=== PATIENT | female | born 1965 | race Caucasian/White ===

== ENCOUNTER 2019-12-22 15:30 | Outpatient (CLI) | payer OTHER, SELFPAY ==
--- NOTE | ~2019-12-22 | MM_ITS ---
EXAMINATION: MM screening [facility] BI w randy HISTORY: Screening mammogram TECHNIQUE: Craniocaudal and mediolateral oblique 3-D tomosynthesis images were obtained and synthetic 2-D images were generated. CAD analysis was submitted and interpreted. COMPARISON: 11/12/2018, 10/31/2017, 10/17/2016 bilateral digital screening mammogram examinations BREAST PARENCHYMAL COMPOSITION: There are scattered areas of fibroglandular density. FINDINGS: There is no evidence of suspicious mass, calcification, or architectural distortion to sugg est malignancy in either breast. There has been no suspicious interval change. IMPRESSION: 1. No mammographic evidence of malignancy. 2. Recommend routine screening mammography in one year. BI-RADS Category 1: Negative Reviewed, dictated and finalized at location A.
== END 2019-12-22 15:31 | disposition home or self-care (01) ==
PROVIDERS: PCP Nurse Practitioner Family; Visit Provider Nurse Practitioner Family
DX: Z12.31 Encounter for screening mammogram for malignant neoplasm of breast (principal)
CPT/HCPCS: 77063; 77067

== ENCOUNTER 2021-06-19 15:27 | Outpatient (CLI) | payer OTHER, SELFPAY ==
--- NOTE | ~2021-06-19 | MM_ITS ---
EXAMINATION: MM screening [facility] BI w randy HISTORY: Screening mammogram TECHNIQUE: Craniocaudal and mediolateral oblique 3-D tomosynthesis images were obtained and synthetic 2-D images were generated. CAD analysis was submitted and interpreted. COMPARISON: 12/22/2019, 11/12/2018, 10/31/2017 BREAST PARENCHYMAL COMPOSITION: There are scattered areas of fibroglandular density. FINDINGS: There is no evidence of suspicious mass, calcification, or architectural distortion to sugg est malignancy in either breast. There has been no suspicious interval change. IMPRESSION: 1. No mammographic evidence of malignancy. 2. Recommend routine screening mammography in one year. BI-RADS Category 1: Negative Reviewed, dictated and finalized at location A. 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
== END 2021-06-19 15:28 | disposition home or self-care (01) ==
LOC: ANHIMG 15:29
PROVIDERS: PCP Nurse Practitioner Family; Visit Provider Nurse Practitioner Family
DX: Z12.31 Encounter for screening mammogram for malignant neoplasm of breast (principal)
CPT/HCPCS: 77063; 77067

== ENCOUNTER 2022-09-23 15:08 | Outpatient (CLI) | payer OTHER, SELFPAY ==
--- NOTE | ~2022-09-23 | MM_ITS ---
EXAMINATION: MM screening [facility] BI w randy HISTORY: Screening TECHNIQUE: Craniocaudal and mediolateral oblique 3-D tomosynthesis images were obtained and synthetic 2-D images were generated. CAD analysis was submitted and interpreted. COMPARISON: Comparison to multiple prior studies sequentially, with oldest reviewed study dated 10/19. BREAST PARENCHYMAL COMPOSITION: There are scattered areas of fibroglandular density. FINDINGS: There is no evidence of suspicious mass, calcification, or architectural distortion to sugg est malignancy in either breast. There has been no suspicious interval change. IMPRESSION: 1. No mammographic evidence of malignancy. 2. Recommend routine screening mammography in one year. BI-RADS Category 1: Negative Reviewed, dictated and finalized at location A.
== END 2022-09-23 15:09 | disposition home or self-care (01) ==
LOC: ANHIMG 15:10
PROVIDERS: PCP Nurse Practitioner Family; Visit Provider Nurse Practitioner Family
DX: Z12.31 Encounter for screening mammogram for malignant neoplasm of breast (principal)
CPT/HCPCS: 77063; 77067

== ENCOUNTER 2024-03-10 13:22 | Outpatient (CLI) | payer OTHER, SELFPAY ==
--- NOTE | ~2024-03-10 | MM_ITS ---
EXAMINATION: MM screening [facility] BI w randy HISTORY: Screening mammogram TECHNIQUE: Craniocaudal and mediolateral oblique 3-D tomosynthesis images were obtained and synthetic 2-D images were generated. CAD analysis was submitted and interpreted. COMPARISON: 09/23/2022, 06/19/2021, 12/22/2019 BREAST PARENCHYMAL COMPOSITION:Not Dense. There are scattered areas of fibroglandular density. FINDINGS: No suspicious mass, calcification, or architectural distortion are identified in either jackie ast to suggest malignancy. There has been no suspicious interval change. IMPRESSION: No mammographic evidence of malignancy. Recommend routine screening mammography in one year. BI-RADS Category 1: Negative Reviewed, dictated and finalized at location .
== END 2024-03-10 13:23 | disposition home or self-care (01) ==
LOC: ANHIMG 13:24
PROVIDERS: PCP Family Medicine; Visit Provider Family Medicine
DX: Z12.31 Encounter for screening mammogram for malignant neoplasm of breast (principal)
CPT/HCPCS: 77063; 77067

== ENCOUNTER 2024-04-23 13:48 | Outpatient (CLI) | payer OTHER, SELFPAY ==
--- NOTE | ~2024-04-23 | DEXA_ITS ---
Bone Density Report Name: RADHA HART Age: 59 Sex: Female Ethnicity: White Date of : 1965 Indication: postmenopausal; screening for osteoporosis; height loss; Referring Provider: ABILIO, [facility] Study: Bone densitometry was performed. Exam Date: April 23, 2024 Accession number: [id number] Bone Density: Region BMD T-score Z-score Classification AP Spine(L1-L4) 1.238 1.7 3.2 Normal Femoral Neck (Left) 0.745 -0.9 0.4 Normal Total Hip (Left) 0.969 0.2 1.2 Normal Femoral Neck (Right) 0.728 -1.1 0.2 Osteopenia Total Hip (Right) 0.942 0.0 1.0 Normal Total Hip Mean 0.956 0.1 1.1 Normal World Health Organization criteria for BMD impression classify patients as: Normal (T-score at or above -1.0), Osteopenia (T-score between -1.0 and -2.5), or Osteoporosis (T-score at or below -2.5). 10-year Fracture Risk(1): Major Osteoporotic Fracture 7.3% Hip Fracture 0.4% Reported Risk Factors: [place] (), Neck BMD=0.728, BMI=29.5 (1) FRAX(R) Version 3.08. Fracture probability calculated for an untreated patient. Fracture probability may be lower if the patient has received treatment. Clinical Information Provided by Patient: Has used the following medications: Vitamin D, Calcium Patient maximum height was 67 Menopause Age: 54 Drinks caffeinated beverages Onset of menses at age 11 Number of children 0 Impression: The patient has low bone mass, based on the Right Femoral Neck T-score. The patient has an estimated ten-year risk of hip fracture of 0.4% and an estimated ten-year risk of major fracture of 7.3%, based on the WHO FRAX algorithm. Discussion: BONE DENSITY IS LOW AT ONE OR MORE SKELETAL SITES. This patient's lowest T-score is low at one or more skeletal sites. It meets the World Health Organization's (WHO) criteria for ?low bone mass? (T-score between -1.0 and -2.5). The patient's 10-year risk of fracture as calculated by FRAX is less than the threshold where pharmacological therapy is recommended by the National Osteoporosis Foundation (NOF). However, all treatment decisions require clinical judgment and consideration of individual patient factors, including patient preferences, comorbidities, previous drug use, risk factors not captured in the FRAX model (e.g., frailty, falls, vitamin D deficiency, increased bone turnover, interval significant decline in bone density) and possible under or overestimation of fracture risk by FRAX. The patient should follow a healthful lifestyle (good nutrition with adequate calcium and vitamin D, and appropriate weight-bearing exercise). Follow-Up: Consider repeating this study in 2 to 3 years to reassess this patient's status, or sooner if there is some new clinical indication. Reported by: DUSTY on 04/23/2024 2:23:00 PM. Reviewed, dictated and finalized at location A. BABAR
== END 2024-04-23 13:49 | disposition home or self-care (01) ==
LOC: ANHIMG 13:50
PROVIDERS: PCP Family Medicine; Visit Provider Family Medicine
DX: Z13.820 Encounter for screening for osteoporosis (principal); M85.851 Other specified disorders of bone density and structure, right thigh
CPT/HCPCS: 77080

== ENCOUNTER 2025-05-20 09:30 | Outpatient (CLI) | payer OTHER, SELFPAY ==
--- NOTE | ~2025-05-20 | MM_ITS ---
EXAMINATION: MM screening dilip BI w randy HISTORY: Screening TECHNIQUE: Craniocaudal and mediolateral oblique 3-D tomosynthesis images were obtained and synthetic 2-D images were generated. CAD analysis was submitted and interpreted. COMPARISON: Comparison to multiple prior studies sequentially, with oldest reviewed study dated 10/31/2017. BREAST PARENCHYMAL COMPOSITION: Not dense: There are scattered areas of fibroglandular density. FINDINGS: There is no evidence of suspicious mass, calcification, or architectural distortion to suggest malignancy in either breast. There has been no suspicious interval change. IMPRESSION: 1. No mammographic evidence of malignancy. 2. Recommend routine screening mammography in one year. BI-RADS Category 1: Negative Reviewed, dictated and finalized at location O. 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
--- OUTSIDE RECORDS SUMMARY | 2025-05-20 09:33 | XMS_ITS | Data Portability ---
Author Organization [place] - [facility], Main Office Address [address] [place] [address] Care Team Providers Care Solution Make Up Operator Name Role Phone RAOUL BERGER Primary Care Provider [phone] Assessment Encounter Date Assessment Date Assessment LastModified by Organization Details LastModified Time 12/31/2023 12/31/2023 58 yo F with - WELL ADULT VISIT - HLD - HTG - HYPOTHYROIDISM - VIT D DEFICIENCY - OVERWEIGHT D/w pt about her findings, recent labs & imagines and further plan of care. Will do routine labs. Meds as directed. Risks Vs benefits of Aspirin 81mg po QOD with food explained. Pt agreed. Diet and exercise explained in detail. Pt in not interested in wt loss med. HM: WWE - 12/20, normal as per pt. Cont f/u with Gyne/LICENSED PRACTICAL NURSE CLINIC NURSE as per schedule. Mammo - 09/23/22, normal. Ordered. DEXA - Never. Ordered. Colonoscopy - 10 yrs ago. Cologuard - 01/10/23, neg. Flu - 04/21. Tdap - 12/19. Pneumo - Pt declined. Shingrix, RSV - At pharmacy/HD. F/u in 2-3 weeks. Annual labs in 01/21. Not available 12/31/2023 09:57:54 01/22/2024 01/22/2024 58 yo F with - HTG, uncontrolled - HLD - HYPOTHYROIDISM - VIT D DEFICIENCY - OVERWEIGHT Annual labs: 12/31/23. D/w pt about her findings, recent labs & imagines and further plan of care. Pt declined for any new Rx at this time. Meds as directed. Risks Vs benefits of Aspirin 81mg po QOD with food explained. Pt agreed. Diet and exercise explained in detail. Pt in not interested in wt loss med. HM: WWE - 12/20, normal as per pt. Cont f/u with Gyne/LICENSED PRACTICAL NURSE CLINIC NURSE as per schedule. Mammo - 09/23/22, normal. Ordered. DEXA - Never. Ordered. Colonoscopy - 10 yrs ago. Cologuard - 01/10/23, neg. Flu - 04/21. Tdap - 12/19. Pneumo - Pt declined. Shingrix, RSV - At pharmacy/HD. F/u in 3-4 months. Lipids in 04/22. Annual labs in 01/21. Not available 01/22/2024 17:25:20 04/28/2024 04/28/2024 The patient gave verbal consent using TelePhonic services and the consent is documented in the medical record prior to using the service. The patient has been informed of what a TeleMedicine visit is. Patient is located at other. Provider is located at office. Names and roles of persons in addition to the patient and provider participating in telemedicine services include staff. The patient had a 11 minute TeleMedicine consultation via phone call to discuss the followin yo F with - HTG, improved - HLD - HYPOTHYROIDISM - VIT D DEFICIENCY - OSTEOPENIA - OVERWEIGHT Annual labs: 12/31/23. D/w pt about her findings, recent labs & imagines and further plan of care. Pt declined for any new Rx at this time. Meds as directed. Risks Vs benefits of Aspirin 81mg po QOD with food explained. Pt agreed. Diet and exercise explained in detail. Pt in not interested in wt loss med. HM: WWE - 12/20, normal as per pt. Cont f/u with Gyne/LICENSED PRACTICAL NURSE CLINIC NURSE as per schedule. Mammo - 03/10/24, normal. DEXA - 04/23/24, osteopenia ++. Colonoscopy - 10 yrs ago. Cologuard - 01/10/23, neg. Flu - 04/21. Tdap - 12/19. Pneumo - Pt declined. Shingrix, RSV - At pharmacy/HD. F/u in 3-4 months. Lipids in 07/24. Annual labs in 01/21. [email or web address] Not available 04/28/2024 15:45:34 Plan of Treatment Reminders Order Date Submit Date Provider Last Modified By Organization Details Last Modified Time Details Appointments None recorded. Lab lipid panel, serum 2023 025 [email or web address] [facility] (Lab), [address] [place], [address], 5 13:55:15 lipid panel, serum 2023 024 [facility] (Lab), [address] [place], [address], 4 14:31:25 [email or web address] obin, total, blood 2023 024 [facility] (Lab), [address] [place], [address], 4 21:34:43 vitamin D, 25-hydroxy, total, serum [address] (Lab), [address] [place], [address], 4 09:08:52 CBC w/ auto diff 2023 024 [facility] (Lab), [address] [place], [address], 4 14:39:03 CMP, serum or plasma 2023 024 [facility] (Lab), [address] [place], [address], 4 14:41:30 lipid panel, serum 2023 024 [email or web address] [facility] (Lab), [address] [place], [address], 4 15:33:49 TSH, serum, reflex free T4 [address] (Lab), [address] [place], [address], 4 09:08:52 urinalysis complete, reflex culture 2023 024 [email or web address] [facility] ([facility] [address] [place], [address], 4 09:08:[address] referral - Please call patient to schedule an appointment . 2023 024 [email or web address] Naveen Ward MD, [address], [facility], [place], [address], 4 08:47:42 Procedures None recorded. Surgeries None recorded. Imaging MAMMO, screening, bilateral 2023 024 [email or web address] 256 Not available 4 09:17:08 DEXA 2023 024 [email or web address] 256 Not available 4 09:16:40 MAMMO, screening, bilateral 2023 024 [email or web address] 256 [facility], [address] [place] [address] [place] [address], [address], 4 08:51:21 Medication Orders levothyroxi ne 125 mcg tablet 2023 [facility], [address] [facility] [address], [address], 4 15:42:35 rosuvastati n 5 mg tablet 2023 024 [facility], [address], [address], 4 15:42:36 levothyroxi ne 125 mcg tablet 2023 024 [facility], [address], [address], 17:17:17 rosuvastati n 5 mg tablet 2023 024 [facility], [address], [address], 17:17:18 levothyroxi ne 125 mcg tablet 2023 024 [facility], [address], [address], 14:09:45 rosuvastati n 5 mg tablet 2023 024 [facility], [address], [address], 14:09:46 Patient TargetsNo targets recorded. Patient Instructions Encounter Date Encounter Id Patient Instructions Last Modified By Organization Details Last Modified Time 09/16/2023 [id number] When You Want to Lose Weight: Care Instructions Not available 09/16/2023 14:23:11 12/31/2023 [id number] When You Want to Lose Weight: Care Instructions Not available 12/31/2023 09:49:26 01/22/2024 [id number] high cholesterol : care instructions [email or web address] Not available 01/22/2024 17:17:10 When You Want to Lose Weight: Care Instructions Not available 01/22/2024 17:17:10 04/28/2024 [id number] high cholesterol : care instructions [email or web address] Not available 04/28/2024 15:42:30 When You Want to Lose Weight: Care Instructions [email or web address] Not available 04/28/2024 15:42:30 Due to the COVID-19 (Novel Coronavirus) pandemic, it is within this context (and with the understanding that this method of patient encounter is in the patient s best interest as well as the health and safety of other patients and the public) that [facility] is being provided for this patient encounter rather than a wgbg-pa-rieg visit. This patient encounter is appropriate at this time. This patient has been advised of the potential risks and limitations of this mode of treatment (including, but not limited to, the absence of in-person examination) and has agreed to be treated in a remote fashion despite these risks. Any and all of the patient s /patient s family s questions on this issue have been answered, and I have made no promises or guarantees to the patient. The patient has also been advised to contact this office for worsening conditions or problems, and seek emergency medical treatment and/or call 911 if the patient deems either necessary. HPI and/or vitals, if listed, were provided by the patient. 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 Referring Physician: Raoul Berger, Family Medicine, Encounter Date: 09/16/2023 Results Created Date Observation Date Name Description Value Unit Range Abnormal Flag Note LastModifiedBy Organization Detail LastModifiedTime 12/31/19 24 12/31/2023 CBC/C OMPLE TE BLD COUNT W/DIF F white blood cells 5.9 x10'3 /uL 4.2-10 .8 Not Available [facility] (Lab) [address] [place], [address], 12/31/2023 14:39:03 12/31/19 24 12/31/2023 CBC/C OMPLE TE BLD COUNT W/DIF F red blood cells 4.34 x10'6 /uL 3.80-5 .20 Not Available [facility] (Lab) [address] [place], [address], 12/31/2023 14:39:03 12/31/19 24 12/31/2023 CBC/C OMPLE TE BLD COUNT W/DIF F hemoglobin 14.0 g/dL 12.0-1 5.6 Not Available [facility] (Lab) [address] [place], [address], 12/31/2023 14:39:03 12/31/19 24 12/31/2023 CBC/C OMPLE TE BLD COUNT W/DIF F hematocrit 41.3 % 35.7-4 5.7 Not Available [facility] (Lab) [address] [place], [address], 12/31/2023 14:39:03 12/31/19 24 12/31/2023 CBC/C OMPLE TE BLD COUNT W/DIF F mean red cell volume 95.2 fL 82.0-9 9.0 Not Available [facility] (Lab) [address] [place], [address], 12/31/2023 14:39:03 12/31/19 24 12/31/2023 CBC/C OMPLE TE BLD COUNT W/DIF F mean red cell hemoglobin 32.3 pg 27.0-3 3.0 Not Available [facility] (Lab) [address] [place], [address], 12/31/2023 14:39:03 12/31/19 24 12/31/2023 CBC/C OMPLE TE BLD COUNT W/DIF F mean RBC HGB concentratio n 33.9 g/dL 31.0-3 6.0 Not Available [facility] (Lab) [address] [place], [address], 12/31/2023 14:39:03 12/31/19 24 12/31/2023 CBC/C OMPLE TE BLD COUNT W/DIF F red cell distribution width 11.8 % 11.8-1 5.5 Not Available [facility] (Lab) [address] [place], [address], 12/31/2023 14:39:03 12/31/19 24 12/31/2023 CBC/C OMPLE TE BLD COUNT W/DIF F platelets 275 x10'3 /uL 150-40 0 Not Available [facility] (Lab) [address] [place], [address], 12/31/2023 14:39:03 12/31/19 24 12/31/2023 CBC/C OMPLE TE BLD COUNT W/DIF F mean platelet volume 9.6 fL 9.0-12 .4 Not Available [facility] (Lab) [address] [place], [address], 12/31/2023 14:39:03 12/31/19 24 12/31/2023 CBC/C OMPLE TE BLD COUNT W/DIF F neutrophils 52.3 % 39.0-7 2.0 Not Available [facility] (Lab) [address] [place], [address], 12/31/2023 14:39:03 12/31/19 24 12/31/2023 CBC/C OMPLE TE BLD COUNT W/DIF F lymphocytes 34.9 % 16.0-4 7.0 Not Available [facility] (Lab) [address] [place], [address], 12/31/2023 14:39:03 12/31/19 24 12/31/2023 CBC/C OMPLE TE BLD COUNT W/DIF F monocytes 7.0 % 5.0-12 .0 Not Available [facility] (Lab) [address] [place], [address], 12/31/2023 14:39:03 12/31/19 24 12/31/2023 CBC/C OMPLE TE BLD COUNT W/DIF F eosinophils 4.3 % 1.0-7. 0 Not Available [facility] (Lab) [address] [place], [address], 12/31/2023 14:39:03 12/31/19 24 12/31/2023 CBC/C OMPLE TE BLD COUNT W/DIF F basophils 1.0 % 0.0-2. 0 Not Available [facility] (Lab) [address] [place], [address], 12/31/2023 14:39:03 12/31/19 24 12/31/2023 CBC/C OMPLE TE BLD COUNT W/DIF F immature granulocytes 0.5 % 0.00-0 .50 Not Available [facility] (Lab) [address] [place], [address], 12/31/2023 14:39:03 12/31/19 24 12/31/2023 CBC/C OMPLE TE BLD COUNT W/DIF F neutrophils, absolute count 3.06 x10'3 /uL 1.5-8. 0 Not Available [facility] (Lab) [address] [place], [address], 12/31/2023 14:39:03 12/31/19 24 12/31/2023 CBC/C OMPLE TE BLD COUNT W/DIF F lymphocytes, absolute count 2.04 x10'3 /uL 1.07-3 .43 Not Available [facility] (Lab) [address] [place], [address], 12/31/2023 14:39:03 12/31/19 24 12/31/2023 CBC/C OMPLE TE BLD COUNT W/DIF F monocytes, absolute count 0.41 x10'3 /uL 0.29-0 .99 Not Available [facility] (Lab) [address] [place], [address], 12/31/2023 14:39:03 12/31/19 24 12/31/2023 CBC/C OMPLE TE BLD COUNT W/DIF F eosinophils, absolute count 0.25 x10'3 /uL 0.02-0 .53 Not Available [facility] (Lab) [address] [place], [address], 12/31/2023 14:39:03 12/31/19 24 12/31/2023 CBC/C OMPLE TE BLD COUNT W/DIF F basophils, absolute count 0.06 x10'3 /uL 0.01-0 .08 Not Available [facility] (Lab) [address] [place], [address], 12/31/2023 14:39:03 12/31/19 24 12/31/2023 CBC/C OMPLE TE BLD COUNT W/DIF F immature granulocytes ,absolute 0.03 x10'3 /uL 0.00-0 .05 Not Available [facility] (Lab) [address] [place], [address], 12/31/2023 14:39:03 12/31/19 24 12/31/2023 CBC/C OMPLE TE BLD COUNT W/DIF F nucleated red blood cells 0.0 % -0 Not Available [facility] (Lab) [address] [place], [address], 12/31/2023 14:39:03 12/31/19 24 12/31/2023 CBC/C OMPLE TE BLD COUNT W/DIF F NRBC# 0.00 x10'3 /uL Not Available [facility] (Lab) [address] [place], [address], 12/31/2023 14:39:03 12/31/19 24 12/31/2023 COMPR EHENS ROBI METAB OLIC PANEL sodium 135 mmol/ L 137-14 5 low Not Available [facility] (Lab) [address] [place], [address], 12/31/2023 14:41:30 12/31/19 24 12/31/2023 COMPR EHENS ROBI METAB OLIC PANEL potassium 4.4 mmol/ L 3.5-5. 1 Not Available [facility] (Lab) [address] [place], [address], 12/31/2023 14:41:30 12/31/19 24 12/31/2023 COMPR EHENS ROBI METAB OLIC PANEL chloride 103 mmol/ L 98-107 Not Available [facility] (Lab) [address] [place], [address], 12/31/2023 14:41:30 12/31/19 24 12/31/2023 COMPR EHENS ROBI METAB OLIC PANEL carbon dioxide 27 mmol/ L 22-30 Not Available [facility] (Lab) [address] [place], [address], 12/31/2023 14:41:30 12/31/19 24 12/31/2023 COMPR EHENS ROBI METAB OLIC PANEL anion gap 9.4 mmol/ L 14-22 low Not Available [facility] (Lab) [address] [place], [address], 12/31/2023 14:41:30 12/31/19 24 12/31/2023 COMPR EHENS ROBI METAB OLIC PANEL glucose 93 mg/dL 70-99 Not Available [facility] (Lab) [address] [place], [address], 12/31/2023 14:41:30 12/31/19 24 12/31/2023 COMPR EHENS ROBI METAB OLIC PANEL BUN 7 mg/dL 8-19 low Not Available [facility] (Lab) [address] [place], [address], 12/31/2023 14:41:30 12/31/19 24 12/31/2023 COMPR EHENS ROBI METAB OLIC PANEL creatinine 0.76 mg/dL 0.66-1 .25 Not Available [facility] (Lab) [address] [place], [address], 12/31/2023 14:41:30 12/31/19 24 12/31/2023 COMPR EHENS ROBI METAB OLIC PANEL GFR >60 Refer ence Range : [place] ge GFR Healt hy Adult : >60 mL/mi n/1.7 3 m2 Chron ic Kidne y Disea se: 15-60 mL/mi n/1.7 3 m2 Kidne y Failu re: <15/m L/min /1.73 m2 www.n iddk. nih.g ov The MDRD study equat ion has not been valid ated in child nicholas <18 years of age; pregn ant women ; the elder ly >85 years of age; or in some racia l or ethni c subgr oups, such as Hispa nics. Outsi de the valid ated mark anthony eters , estim ated GFR is less accur ate, requi ring clini vee judgm ent on a case- by-ca se basis . Clini vee inter preta tion for other races and ages must be made by the clini linda. The MDRD study equat ion has not been valid ated for the evalu ation of serum creat inine relat ed to nutri darron l statu s or medic ation usage . For perso ns <18 years of age, a pedia tric GFR calcu lator is avail able on the [facility] websi te: https ://cathie w.tg gallegosy.o rg/pr ofess ional s/kdo qi/gf r_cal culat or Not Available [facility] (Lab) [address] [place], [address], 12/31/2023 14:41:30 12/31/19 24 12/31/2023 COMPR EHENS ROBI METAB OLIC PANEL alkaline phosphatase 70 U/L 38-126 Not Available [facility] (Lab) [address] [place], [address], 12/31/2023 14:41:30 12/31/19 24 12/31/2023 COMPR EHENS ROBI METAB OLIC PANEL alanine aminotransfe rase 27 U/L 0-35 Not Available [facility] (Lab) [address] [place], [address], 12/31/2023 14:41:30 12/31/19 24 12/31/2023 COMPR EHENS ROBI METAB OLIC PANEL aspartate aminotransfe rase 26 U/L 15-37 Not Available [facility] (Lab) [address] [place], [address], 12/31/2023 14:41:30 12/31/19 24 12/31/2023 COMPR EHENS ROBI METAB OLIC PANEL bilirubin, total 0.60 mg/dL 0.20-1 .30 Not Available [facility] (Lab) [address] [place], [address], 12/31/2023 14:41:30 12/31/19 24 12/31/2023 COMPR EHENS ROBI METAB OLIC PANEL calcium 9.2 mg/dL 8.4-10 .2 Not Available [facility] (Lab) [address] [place], [address], 12/31/2023 14:41:30 12/31/19 24 12/31/2023 COMPR EHENS ROBI METAB OLIC PANEL total protein 7.7 g/dL 6.3-8. 2 Not Available [facility] (Lab) [address] [place], [address], 12/31/2023 14:41:30 12/31/19 24 12/31/2023 COMPR EHENS ROBI METAB OLIC PANEL albumin 4.7 g/dL 3.4-5. 0 Not Available [facility] (Lab) [address] [place], [address], 12/31/2023 14:41:30 12/31/19 24 12/31/2023 COMPR EHENS ROBI METAB OLIC PANEL globulin 3.0 g/dL 2.6-4. 2 Not Available [facility] (Lab) [address] [place], [address], 12/31/2023 14:41:30 12/31/19 24 12/31/2023 COMPR EHENS ROBI METAB OLIC PANEL A/G ratio 1.6 ratio 1.0-2. 0 Not Available [facility] (Lab) [address] [place], [address], 12/31/2023 14:41:30 12/31/19 24 12/31/2023 LIPID PANEL cholesterol 165 mg/dL 140-19 9 [facility] MAUREEN NSUS RECOM MENDA TION FOR BEAU STERO L: ADULT CHILD LOW RISK: <200 <170 BORDE RLINE : <200- 239 ----- HIGH RISK: >240 >200 Not Available [facility] (Lab) [address] [place], [address], 12/31/2023 14:41:34 12/31/19 24 12/31/2023 LIPID PANEL triglyceride s 218 mg/dL 0-150 high NIH MAUREEN NSUS REPOR T RECOM MENDA TION FOR TRIGL YCERI HUDSON: ADULT CHILD LOW RISK: <150 ----- BODER LINE: 150-1 99 ----- HIGH RISK: >200 ----- Not Available [facility] (Lab) [address] [place], [address], 12/31/2023 14:41:34 12/31/19 24 12/31/2023 LIPID PANEL HDL cholesterol 59 mg/dL 40- Not Available [facility] (Lab) [address] [place], [address], 12/31/2023 14:41:34 12/31/19 24 12/31/2023 LIPID PANEL LDL cholesterol, calculated 62 mg/dL 0-130 NIH MAUREEN NSUS REPOR T RECOM MENDA TIONS FOR LDL: ADULT CHILD LOW RISK <130 <110 (OPTI MAL LDL) <100 ----- BORDE RLINE : 130-1 59 ----- HIGH RISK: >160 >130 A TRIGL YCERI DE RESUL T >400 INVAL IDATE S THE CALCU LATIO N FOR LDL FRACT IONAT ION - THE LDL RESUL T WILL NOT BE REPOR ZABRINA. Not Available [facility] (Lab) [address] [place], [address], 12/31/2023 14:41:34 12/31/19 24 12/31/2023 VITAM IN D 25-HY DROXY [id number] 49.0 NG/mL 30-100 Vitam in D Statu s: Defic ient: <20 ng/mL Insuf ficie nt: 20-29 ng/mL Suffi cient : 30-10 0 ng/mL Not Available [facility] (Lab) [address] [place], [address], 12/31/2023 14:54:41 12/31/19 24 12/31/2023 TSH W/REF SONAM FT4 TSH with reflex free T4 0.542 uIU/m L 0.465- 4.680 Not Available [facility] (Lab) [address] [place], [address], 12/31/2023 15:19:42 12/31/19 24 12/31/2023 URINA LYSIS COMPL ETE/I RIS W/RFX color COLORL ESS Not Available [facility] (Lab) [address] [place], [address], 12/31/2023 15:27:11 12/31/19 24 12/31/2023 URINA LYSIS COMPL ETE/I RIS W/RFX appear CLEAR Not Available [facility] (Lab) [address] [place], [address], 12/31/2023 15:27:11 12/31/19 24 12/31/2023 URINA LYSIS COMPL ETE/I RIS W/RFX specific gravity 1.002 1.001- 1.030 Not Available [facility] (Lab) [address] [place], [address], 12/31/2023 15:27:11 12/31/19 24 12/31/2023 URINA LYSIS COMPL ETE/I RIS W/RFX pH 7.5 pH_un its 5.0-9. 0 Not Available [facility] (Lab) [address] [place], [address], 12/31/2023 15:27:11 12/31/19 24 12/31/2023 URINA LYSIS COMPL ETE/I RIS W/RFX leukocytes NEGATI VE issa/u L negati ve- Not Available [facility] (Lab) [address] [place], [address], 12/31/2023 15:27:11 12/31/19 24 12/31/2023 URINA LYSIS COMPL ETE/I RIS W/RFX nitrite NEGATI VE negati ve- Not Available [facility] (Lab) [address] [place], [address], 12/31/2023 15:27:11 12/31/19 24 12/31/2023 URINA LYSIS COMPL ETE/I RIS W/RFX protein NEGATI VE mg/dL negati ve- Not Available [facility] (Lab) [address] [facility] [place], [address], 12/31/2023 15:27:11 12/31/19 24 12/31/2023 URINA LYSIS COMPL ETE/I RIS W/RFX glucose NORMAL mg/dL normal - Not Available [facility] (Lab) [address] [place], [address], 12/31/2023 15:27:11 12/31/19 24 12/31/2023 URINA LYSIS COMPL ETE/I RIS W/RFX ketones NEGATI VE mg/dL negati ve- Not Available [facility] (Lab) [address] [place], [address], 12/31/2023 15:27:11 12/31/19 24 12/31/2023 URINA LYSIS COMPL ETE/I RIS W/RFX urobilinogen NORMAL mg/dL normal - Not Available [facility] (Lab) [address] [place], [address], 12/31/2023 15:27:11 12/31/19 24 12/31/2023 URINA LYSIS COMPL ETE/I RIS W/RFX bilirubin NEGATI VE mg/dL negati ve- Not Available [facility] (Lab) [address] [place], [address], 12/31/2023 15:27:11 12/31/19 24 12/31/2023 URINA LYSIS COMPL ETE/I RIS W/RFX blood NEGATI VE mg/dL negati ve- Not Available [facility] (Lab) [address] [place], [address], 12/31/2023 15:27:11 12/31/19 24 12/31/2023 URINA LYSIS COMPL ETE/I RIS W/RFX white blood cells NONE /i??h pfi?? 0-8 Not Available [facility] (Lab) [address] [place], [address], 12/31/2023 15:27:11 12/31/19 24 12/31/2023 URINA LYSIS COMPL ETE/I RIS W/RFX red blood cells 0-4 /i??h pfi?? 0-4 Not Available [facility] (Lab) [address] [place], [address], 12/31/2023 15:27:11 12/31/19 24 12/31/2023 URINA LYSIS COMPL ETE/I RIS W/RFX bacteria NONE Not Available [facility] (Lab) [address] [place], [address], 12/31/2023 15:27:11 12/31/19 24 12/31/2023 URINA LYSIS COMPL ETE/I RIS W/RFX squamous epithelial OCCASI ONAL /i??l pfi?? abnormal Not Available [facility] (Lab) [address] [place], [address], 12/31/2023 15:27:11 12/31/19 24 12/31/2023 HEMOG LOBIN A1C HA1C 5.4 % 4.0-6. 0 Diabe dominique Scree supa Crite santiago: <5.7% Consi stent with absen ce of diabe dominique 5.7-6 .4% Consi stent with incre ased risk for diabe dominique (pred iabet es) >OR=6 .5% Consi stent with diabe dominique REFER ENCE: Diabe dominique Care 2016, 39(Obrien ppl.1 ):s13 -s22 Not Available [facility] (Lab) [address] [place], [address], 12/31/2023 21:34:43 04/12/20 24 04/12/2024 LIPID PANEL cholesterol 143 mg/dL 140-19 9 NIH MAUREEN NSUS RECOM MENDA TION FOR BEAU STERO L: ADULT CHILD LOW RISK: <200 <170 BORDE RLINE : <200- 239 ----- HIGH RISK: >240 >200 Not Available [facility] (Lab) [address] [place], [address], 04/12/2024 14:31:25 04/12/20 24 04/12/2024 LIPID PANEL triglyceride s 167 mg/dL 0-150 high NIH MAUREEN NSUS REPOR T RECOM MENDA TION FOR TRIGL YCERI HUDSON: ADULT CHILD LOW RISK: <150 ----- BODER LINE: 150-1 99 ----- HIGH RISK: >200 ----- Not Available [facility] (Lab) [address] [place], [address], 04/12/2024 14:31:25 04/12/20 24 04/12/2024 LIPID PANEL HDL cholesterol 52 mg/dL 40- Not Available [facility] (Lab) [address] [place], [address], 04/12/2024 14:31:25 04/12/20 24 04/12/2024 LIPID PANEL LDL cholesterol, calculated 58 mg/dL 0-130 [facility] MAUREEN NSUS REPOR T RECOM MENDA TIONS FOR LDL: ADULT CHILD LOW RISK <130 <110 (OPTI MAL LDL) <100 ----- BORDE RLINE : 130-1 59 ----- HIGH RISK: >160 >130 A TRIGL YCERI DE RESUL T >400 INVAL IDATE S THE CALCU LATIO N FOR LDL FRACT IONAT ION - THE LDL RESUL T WILL NOT BE REPOR ZABRINA. Not Available [facility] (Lab) [address] [place], [address], 04/12/2024 14:31:25 03/10/20 24 03/10/2024 MAMMO , scree supa, bilat eral No observ ation record ed. [address] , [place], [address], 03/11/2024 09:59:54 03/10/20 24 03/10/2024 MAMMO , scree supa, bilat eral No observ ation record ed. [address] , [place], [address], 03/11/2024 10:00:22 04/27/20 24 2024 DEXA No observ ation record ed. [address], [address], 04/28/2024 14:58:14 04/27/20 24 2024 DEXA No observ ation record ed. [address], [address], 04/28/2024 14:58:14 Result Notes None recorded. Problems Name Problem SNOMED Code Status Onset Date Resolution Date Notes Provider Name and Address Organization Details Recorded Time Enlarged uterus 649465349 Active Not Available [facility] 3 05:54:46 Hypothyroidis m 79178036 Active Not Available [facility] 3 05:54:46 Uterine leiomyoma 99473827 Active Not Available [employer] 3 05:54:47 Menopause present 090110538 Active 2017 Not Available [facility] 3 05:54:46 Hyperlipidemi a 97892996 Active 2020 Not Available [facility] 3 05:54:46 Hypertriglyce ridemia 203526217 Active 2023 Raoul Berger MD [address], [place], [address] , [employer] 4 14:07:03 Overweight 574264166 Active 2023 Raoul Berger MD [address], [place], [address] , [employer] 4 14:07:30 Skin lesion 91208926 Active 2023 Raoul Berger MD [address], [place], [address] , [employer] 4 14:16:54 Bowel spasm 343803613 Active 2023 Raoul Berger MD [address], [place], [address] , [employer] 4 14:22:11 Vitamin D deficiency 26422056 Active 2023 Raoul Berger MD [address], [place], [address] , [employer] 4 09:48:24 Osteopenia 316670185 Active 2023 Raoul Berger MD [address], [place], [address] , [employer] 4 14:08:19 Problem Notes None recorded. Procedures Surgical History Date Name Laterality Status Provider Name and Address Organization Details Recorded Time 3 Most Recent Mammogram completed Yolande Cardona RN [employer] 12/13/2022 10:21:37 3 Date of Last Mammogram completed Yolande Downey NP [address], [place], [address], [employer] 09/24/2022 22:04:43 Imaging Results None recorded. Procedure Notes None recorded. Medical Equipment None Reported. Allergies No known drug allergies Medications Name Sig Start Date Stop Date Status Note LastModified by Organization Details LastModified Time azithromyci n 250 mg tablet TAKE 2 TABLETS (500 MG) BY ORAL ROUTE ONCE DAILY FOR 1 DAY THEN 1 TABLET (250 MG) BY ORAL ROUTE ONCE DAILY FOR 4 DAYS 08/29 completed Not Available Not Available Not Available benzonatate 200 mg capsule TAKE 1 CAPSULE BY MOUTH 3 TIMES A DAY NEEDED FOR COUGH 12/13 completed Not Available Not Available Not Available Synthroid 100 mcg tablet Take 1 tablet every day by oral route for 90 days. 12/20 completed Not Available Not Available Not Available levothyroxi ne 125 mcg tablet TAKE 1 TABLET BY MOUTH ONCE DAILY IN THE MORNING 2024 active Not Available Not Available Not Avai lable azelastine 137 mcg (0.1 %) nasal spray TAKE 2 SPRAY(S) INTRANASA LLY 2 TIMES A DAY 12/13 completed Not Available Not Available Not Available methylpredn isolone 4 mg tablets in a dose pack Take as directed on label 08/29 completed Not Available Not Available Not Available levothyroxi ne 112 mcg tablet TAKE 1 TABLET BY MOUTH EVERY DAY 12/07 completed Not Available Not Available Not Available rosuvastati n 5 mg tablet TAKE 1 TABLET BY MOUTH NIGHTLY active Not Available Not Available No t Available garlic 08/27 completed Not Available Not Available Not Available zinc 09/04 completed Not Available Not Available Not Available Fish Oil 1 daily 06/12 completed Not Available Not Available Not Available biotin 09/04 completed Not Available Not Available Not Available Centrum Silver daily 08/29 completed Not Available Not Available Not Available Calcium 600 + D(3) 600 mg-10 mcg (400 unit) tablet Take 1 tablet twice a day by oral route as directed for 90 days. 2023 active Not Available Not Available Not Avai lable Suprep Bowel Prep Kit 17.5 gram-3.13 gram-1.6 gram oral solution 06/12 completed Not Available Not Available Not Available Vitamin D2 5,000 IU daily 2015 active Not Available Not Available Not Avai lable Fluvirin 9494-7458 45 mcg (15 mcg x 3)/0.5 mL intramuscul ar suspension INJECT 0.5 ML INTRAMUSC ULARLY DIRECTED. 09/30 completed Not Available Not Available Not Available Flublok Quad (PF) 180 mcg (45 mcg x 4)/0.5 mL IM syringe PHARMACIS T ADMINISTE RED IMMUNIZAT ION ADMINISTE RED AT TIME OF DISPENSIN G 08/27 completed Not Available Not Available Not Available BinaxNOW COVID-19 Ag Self Test kit Use as Directed on the Package 12/13 completed Not Available Not Available Not Available Vitals Date Recorded Body height Body mass index (BMI) Body weight Body temperature Heart rate Respiratory rate Oxygen saturation Systolic And Diastolic Provider Name and Address Organization Details Last Updated DateTime 4 167.64 cm 29.1 kg/m2 14337.4 3 g 98.1 [degF] 76 /min 20 /min 99 % 122/70 mm[Hg] [facility] 4 14:02:24 Date Recorded Body height Body mass index (BMI) Body weight Body temperature Heart rate Respiratory rate Oxygen saturation Systolic And Diastolic Provider Name and Address Organization Details Last Updated DateTime 4 167.64 cm 29.4 kg/m2 86782.5 1 g 97.8 [degF] 70 /min 16 /min 98 % 128/76 mm[Hg] [facility] 4 09:31:56 Date Recorded Body height Body mass index (BMI) Body weight Body temperature Heart rate Respiratory rate Oxygen saturation Systolic And Diastolic Provider Name and Address Organization Details Last Updated DateTime 4 167.64 cm 29.4 kg/m2 26997.1 7 g 97.9 [degF] 76 /min 16 /min 99 % 136/72 mm[Hg] [facility] 4 17:09:12 Social History Question Answer Notes LastModified by Organizat ion Details LastModified Time Tobacco Smoking Status Never Smoker Not Available [employer] 08/28/2022 05:51:57 Do You Have An Advance Directive? No Information not available 12/13/2022 Do You Wear A Helmet When Biking? No MIGRATION.[id number] Information not available 08/28/2022 Is Blood Transfusion Acceptable In An Emergency? Yes Information not available 12/13/2022 What Is Your Level Of Caffeine Consumption? Moderate MIGRATION.14984 14079 Information not available 08/28/2022 How Much Tobacco Do You Chew? None MIGRATION.32867 95556 Information not available 08/28/2022 What Is Your Code Status? Full Code Information not available 12/13/2022 In The 14 Days Before Symptom Onset, Have You Had Close Contact With A Laboratory-confir med COVID-19 While That Case Was Ill? No MIGRATION.85824 38922 Information not available 08/28/2022 In The 14 Days Before Symptom Onset, Have You Had Close Contact With A Person Who Is Under Investigation For COVID-19 While That Person Was Ill? No MIGRATION.40657 26733 Information not available 08/28/2022 What Type Of Diet Are You Following? REGULAR MIGRATION.06025 82344 Information not available 08/28/2022 Which Illicit Or Recreational Drugs Have You Used? None MIGRATION.02339 70294 Information not available 08/28/2022 How Many Days Of Moderate To Strenuous Exercise, Like A Brisk Walk, Did You Do In The Last 7 Days? 5 MIGRATION.50799 34617 Information not available 08/28/2022 On Those Days That You Engage In Moderate To Strenuous Exercise, How Many Minutes, On Average, Do You Exercise? 45 Information not available 12/13/2022 Have There Been Any Changes To Your Family Or Social Situation? No MIGRATION.38555 34027 Information not available 08/28/2022 Do You Use Insect Repellent Routinely? No MIGRATION.29786 29131 Information not available 08/28/2022 Where Do You Live? SingleLevelHouse Information not available 12/13/2022 Do You Have A Medical Power Of Test Automation Architect? No Information not available 12/13/2022 Have You Ever Been Counseled For Unhealthy Alcohol Use? No MIGRATION.45219 85025 Information not available 08/28/2022 Do You Have Any Pets? Yes MIGRATION.91235 10125 Information not available 08/28/2022 What Is Your Relationship Status? MIGRATION.12704 75968 Information not available 08/28/2022 Do You Use Your Seat Belt Or Car Seat Routinely? Yes MIGRATION.29908 27764 Information not available 08/28/2022 Do You Have Smoke And Carbon Monoxide Detectors In Your Home? Yes MIGRATION.86124 48318 Information not available 08/28/2022 Are There Any Smokers In Your House? No MIGRATION.19642 82639 Information not available 08/28/2022 Do You Participate In Social Media? Yes MIGRATION.99983 67153 Information not available 08/28/2022 What Types Of Sporting Activities Do You Participate In? Treadmill, Walk Information not available 12/13/2022 Do You Use Sunscreen Routinely? Yes MIGRATION.36277 25528 Information not available 08/28/2022 Has Tobacco Cessation Counseling Been Provided? No MIGRATION.12243 82072 Information not available 08/28/2022 Have You Recently Traveled Abroad? No MIGRATION.64261 52485 Information not available 08/28/2022 Do You Have Any Dietary Restrictions? No MIGRATION.49100 08789 Information not available 08/28/2022 Sex: Unknown Functional Status Question Answer Note LastModified by Organizat ion Details LastModified Time Do you use any illicit or recreational drugs? No MIGRATION.601228 2174 Information not available 08/28/2022 Do you or have you ever used any other forms of tobacco or nicotine? No MIGRATION.391576 6853 Information not available 08/28/2022 What is your level of alcohol consumption? Occasional MIGRATION.188732 5412 Information not available 08/28/2022 Are you currently employed? Yes Information not available 12/20/2022 What is your occupation? [employer] MIGRATION.732722 5512 Information not available 08/28/2022 Do you or have you ever used e-cigarettes or vape? Never used electronic cigarettes MIGRATION.419859 0980 Information not available 08/28/2022 What is your exercise level? Heavy MIGRATION.648830 2645 Information not available 08/28/2022 Mental Status Question Answer Note LastModified by Organization D etails LastModified Time Do you feel stressed (tense, restless, nervous, or anxious, or unable to sleep at night)? [id number] Information not available 12/13/2022 Family History Nothing Reported Notes:luekemia is on mother' s side of family Medical History Condition Response HIGH CHOLESTEROL / HYPERLIPIDEMIA Y Gynecological History Statement/Question Response If Post Menopausal, Age at Menopause 53 Date of Last Mammogram 06/19/2021 Date of Last Mammogram 09/23/2022 Date of Last Colonoscopy Most Recent Bone Density Date of LMP Date of Last Pap 12/20/2022 Date of Last Pap Smear Most Recent Mammogram 09/28/2022 Obstetrics History GPAL:G 0 P 0 0 0 0 Immunizations Vaccine Type Date Status Note Provider Nam e and Address Organization Details Recorded Time SARS-COV-2 (COVID-19) vaccine, UNSPECIFIED 1 completed Not Available [facility] 08/28/2022 05:59:45 SARS-COV-2 (COVID-19) vaccine, UNSPECIFIED 1 completed Not Available [facility] 08/28/2022 05:59:45 zoster recombinant 0 completed Not Available [facility] 08/28/2022 05:59:45 Hep B, unspecified formulation 2 completed Not Available [facility] 08/28/2022 05:59:45 Hep B, unspecified formulation 2 completed Not Available [facility] 08/28/2022 05:59:46 Tdap 2 completed Not Available [facility] 08/28/2022 05:59:46 Influenza, split virus, quadrivalent, preservative 1 completed Not Available [facility] 08/28/2022 05:59:46 zoster, unspecified formulation 0 completed Not Available [facility] 08/28/2022 05:59:46 Influenza, split virus, quadrivalent, preservative 0 completed Not Available [facility] 08/28/2022 05:59:46 Influenza, split virus, quadrivalent, preservative 9 completed Not Available [facility] 08/28/2022 05:59:46 Influenza, split virus, quadrivalent, preservative 8 completed Not Available [facility] 08/28/2022 05:59:46 Influenza, split virus, quadrivalent, preservative 7 completed Not Available [facility] 08/28/2022 05:59:46 Influenza, split virus, trivalent, preservative 4 completed Not Available [facility] 08/28/2022 05:59:46 Influenza, split virus, trivalent, preservative 3 completed Not Available [facility] 08/28/2022 05:59:47 DTaP 1 completed Not Available [facility] 08/28/2022 05:59:47 Past Encounters Encounter ID Performer Location Encounter Start Date Encounter Closed Date Diagnosis/Indication Diagnosis SNOMED-CT Code Diagnosis ICD10 Code Diagnosis IMO Codes Diagnosis Note [id number] Raoul Berger MD [address] [address] 12/07/2020 00:00:00 12/07/2020 16:12:36 [id number] Raoul Berger MD [address] [address] 03/02/2021 00:00:00 03/02/2021 09:28:16 [id number] Raoul Berger MD [address] [address] 12/14/2021 00:00:00 12/14/2021 08:49:43 [id number] Yolande Downey NP [address] [address] 12/13/2022 09:58:07 12/13/2022 10:58:39 Screening for malignant neoplasm of colon 917567603 Z12.11 Cologuard ordered 12/13/22. Adult [facility] th examination 249113296 Z00.00 Encourage well balanced meals, active lifestyle, and routine vision and dental appts. Hypothyroidism 42796160 E03.9 Levothyrox ine 125 mcg po daily. Hyperlipidemia 82619717 E78.5 Rosuvastat in 5 mg po nighly Diabetes m ellitus screening 194699149 Z13.1 Anemia screening 7672833 07 Z13.0 [id number] Yolande Downey NP [address] [address] 12/20/2022 07:54:39 12/20/2022 08:41:56 Gynecologic examination 77551045 Z01.419 Encouraged well balanced meals, active lifestyle, and routine vision and dental appt. [id number] Raoul Berger MD [address] [address] 09/16/2023 13:55:53 09/16/2023 14:39:15 Hyperlipidemia 17778383 E78.5 Pt declined for any lab at this time. Wants to wait until 12/21. Hypertriglyceridemia 302 571366 E78.2 Hypothyroidism 53709803 E03.9 Overweight 951505832 E66 .3 Screening mammography 24 411742 Z12.31 Skin lesion 34031897 L98 .9 Multiple Bowel spasm 556327612 R2 5.2 Pt declined for any referral for Surg/GI at this time. [id number] Raoul Berger MD [address] [address] 12/31/2023 09:14:19 12/31/2023 10:02:46 Adult health examination 947082686 Z00.00 Overweight 087784304 E66 .3 Vitamin D deficiency 347 12876 E55.9 Screening for osteoporosis 335044653 Z13.820 Screening mammography 24 605472 Z12.31 Hypertriglyceridemia 302 298870 E78.2 [id number] Raoul Berger MD [address] [address] 01/22/2024 16:57:51 01/22/2024 17:32:17 Overweight 150420235 E66.3 Vitamin D deficiency 347 89251 E55.9 Improved Hypertriglyceridemia 302 287374 E78.2 Hyperlipidemia 64298125 E78.5 Hypothyroidism 76260793 E03.9 [id number] Raoul Berger MD [address] [address] 04/12/2024 09:38:52 04/12/2024 10:25:44 Enlarged uterus 293074430 N85.2 [id number] Raoul Berger MD [address] [address] 04/28/2024 14:27:34 04/28/2024 15:56:34 Hypothyroidism 59246660 E03.9 Hypertriglyceridemia 302 898229 E78.2 Hyperlipidemia 09799711 E78.5 Overweight 013808229 E66 .3 Vitamin D deficiency 347 09447 E55.9 Improved Health Concerns Section Related Observation LastModified by Organization Detai ls LastModified Time None Recorded Concern Status LastModified by Organization Details LastModified Time None Recorded Advance Directives Directive N: Payers Insurance Date Sequence Insurance Name Policy Number Policy Holloway Covered Member ID Holloway Member ID Guarantor Name 12/31/2023 2 [facility] Faye Peggy [id number] Faye Woosd 09/16/2023 1 [facility] Faye Edwardsrubin [id number] Faye Woods 09/16/2023 1 [facility] [id number] Faye Peggy [id number] Faye Sesarchrisrubin 09/16/2023 1 [employer] [facility] (PP[facility]) [id number] Faye Woods [id number] Faye Woods 04/26/2024 1 [facility] [id number] Faye Kabajustyn [id number] Faye Sesarjustyn Notes Date Note Type Note Provider Name and Address Organization Details Recorded Time 09/16/2023 text/html Pt is here for f/u on her meds and chronic conditions. Doing overall well. Denies any problem with meds. C/o Lt groin area pain for last 3 yrs, about 1-2 episodes per month and it lasts for few seconds and than goes away without any med. Denies any BM concern. Denies any other area pain. C/o few skin lesions and wants to see a Derm for it. Raoul Berger MD [address], [place], [address], [employer] 09/16/2023 14:27:48 12/31/2023 text/html Pt is here for her annual visit. Doing overall well. Denies any problem with meds. Denies any new concern. Raoul Berger MD [address], [place], [address], [employer] 12/31/2023 09:59:26 01/22/2024 text/html Pt is here for f/u on her annual labs. Doing overall well. Denies any problem with meds. Denies any new concern. Raoul Berger MD [address] [address], [place], [address], [employer] 01/22/2024 17:26:39 04/28/2024 text/html Telephone visit: F/u on lab and chronic conditions. Doing overall well. Denies any problem with meds. Denies any new concern. Raoul Berger MD [address] [facility] [address], [place], [address], [employer] 04/28/2024 15:46:27 OBGyn Episode No OBEpisode recorded.
--- OUTSIDE RECORDS SUMMARY | 2025-05-20 09:33 | XMS_ITS | Clinical Summary ---
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 Name Role Phone Unavailable Primary Care Provider Unavailabl e Social History Tobacco Use Types Packs/Day Years Used Date Smoking Tobacco: Never Assessed Comments Unknown Sex and Gender Information Value Date Recorded Sex Assigned at Not on file Legal Sex Female 8:21 PM CDT Gender Identity Not on file Sexual Orientation Not on file Plan of Treatment Health Maintenance Due Date Last Done Comments Cervical Cancer Screening Pa p Smear (Age 30 to 64) Every 3 Years 1963 Colorectal Cancer Screening Colonoscopy (10 Years) 1963 Annual Physical 1966 Hepatitis C 1981 DTaP, Tdap and Td Vaccines ( 1 - Tdap) 1982 Cervical Cancer Screening Pa p with HPV Testing (Age 30 to 64) Every 5 Years 1993 Cervical Cancer Screening with HPV 1993 Mammogram Screening 2003 Pneumococcal Vaccine: 50+ Ye ars (1 of 1 - PCV) 2013 Zoster Vaccines (1 of 2) 2013 COVID-19 Vaccine ( - 2024-2 6 season) 2025 Influenza Adult (#1) 2025 RSV Immunization or 60+ Years (1 - 1-dose 75+ series) 2038 Hepatitis A Vaccines Aged Out No long er eligible based on patient's age to complete this topic Meningococcal B Vaccine Aged Out No l onger eligible based on patient's age to complete this topic Meningococcal Vaccine Aged Out No damon rakesh eligible based on patient's age to complete this topic RSV Immunizations Under 20 Months Aged Out No longer eligible based on patient's age to complete this topic
== END 2025-05-20 09:31 | disposition home or self-care (01) ==
LOC: ANHFOHIMG 09:31
PROVIDERS: PCP Nurse Practitioner Family; Visit Provider Nurse Practitioner Family
DX: Z12.31 Encounter for screening mammogram for malignant neoplasm of breast (principal)
CPT/HCPCS: 77063; 77067